=== PATIENT | female | born 1970 | race Hispanic/Latino ===

== ENCOUNTER → 2017-05-02 | Outpatient (CLI) | payer MEDICAID | END | disposition home or self-care (01) | LOC: RAH 15:16 | PROVIDERS: ATTEND Pain Medicine Interventional Pain Medicine | DX: M25.562 Pain in left knee (principal); M25.561 Pain in right knee | CPT/HCPCS: 73562 ==

== ENCOUNTER → 2017-07-15 | Outpatient (CLI) | payer MEDICAID | LOC: RAH 15:46 | PROVIDERS: ATTEND Pain Medicine Interventional Pain Medicine | DX: M47.898 Other spondylosis, sacral and sacrococcygeal region (principal) | CPT/HCPCS: 72220 ==

== ENCOUNTER 2023-02-28 00:16 | Observation (INO) | payer MEDICAID ==
[2023-02-28] VITALS (16 sets, daily range): BP systolic 97–154; BP diastolic 59–88; PULSE 73–82; RESP 14–20; TEMP 98–98.1; O2SAT 98–100
[~2023-02-28] VITALS: Ht 172.7 cm; Wt 78.3 kg
[~2023-02-28 00:16] MED LIST: ACET-2079 PO; ALPR2TAB2 PO; ASPI-1005 PO; CLOT15CR23 TP; DOCU-116 PO; ESCI10TA PO; FERR500P12 MC; GABA-529 PO; INSU100I26 SQ; METF-446 PO; OLAN2.5T3 PO; OMEP20CA12 PO; PIPE3.379 IV; SERT25TA PO; VIT1TABL66 PO
[2023-02-28 00:51] LABS: BASOPHILS # (AUTO) 0.03 K/uL (0.00-0.20); BASOPHILS % (AUTO) 0.5 % (0.0-5.0); EOSINOPHILS # (AUTO) 0.14 K/uL (0.00-0.70); EOSINOPHILS % (AUTO) 2.2 % (0.0-8.0); HEMATOCRIT 30.6 % (36-48); IMMATURE GRANULOCYTE ABSOLUTE 0.01 K/uL (0-1); LYMPHOCYTES # (AUTO) 1.4 K/uL (1.0-4.8); LYMPHOCYTES % (AUTO) 22.1 % (21.0-51.0); MEAN CORPUSCULAR HEMOGLOBIN 29.2 pg (27.0-33.0); MEAN CORPUSCULAR HGB CONC 34.3 g/dL (32.0-36.0); MONOCYTES # (AUTO) 0.7 K/uL (0.1-1.0); MONOCYTES % (AUTO) 10.1 % (3.0-13.0); NEUTROPHILS # (AUTO) 4.2 K/uL (1.8-7.7); NEUTROPHILS % (AUTO) 64.9 % (40.0-77.0); PLATELET COUNT (AUTO) 240 K/uL (130-400); RED CELL DISTRIBUTION WIDTH 13.4 % (11.0-15.5); WHITE BLOOD COUNT (AUTO) 6.4 K/uL (4.8-10.8)
[2023-02-28 01:15] LABS: CREATININE 3.6 mg/dL (0.5-1.5); POTASSIUM 3.8 mmol/L (3.5-5.1)
[2023-02-28] MEDS ORDERED: HYDROXYZINE 25 MG TABLET PO ONE (01:30)
[2023-02-28] MEDS ORDERED: ONDANSETRON 4MG INJ IV PRN (02:30)
[2023-02-28] MEDS ORDERED: ACETAMINOPHEN 325 MG TAB PO PRN ×2 (02:30)
[2023-02-28] MEDS: HEPARIN 5,000 UNIT VIAL SQ SCH ×2 (03:43→14:50)
[2023-02-28] MEDS: HYDROCODONE/ACETAMINOPHEN 5/325 MG TAB PO PRN ×2 (06:43→17:36)
[2023-02-28] MEDS: INSULIN HUMULIN R 100 UNIT/ML 3ML SQ SCH ×4 (06:44→21:00)
[2023-02-28] MEDS: PANTOPRAZOLE 40 MG TAB DR PO SCH (09:01)
[2023-02-28] MEDS ORDERED: LISINOPRIL 20 MG TABLET PO ONE (10:00)
[2023-02-28] MEDS: HYDROMORPHONE 1 MG INJ IV PRN ×2 (10:41→20:20)
[2023-02-28] MEDS ORDERED: HYDRALAZINE 20MG/ML VIAL IV PRN (13:00)
[2023-02-28] MEDS: HYDRALAZINE 25MG TABLET PO SCH ×2 (13:47→20:19)
[2023-02-28] MEDS: GABAPENTIN 100 MG CAPSULE PO SCH ×2 (14:10→20:19)
[2023-02-28] MEDS: DOCUSATE SODIUM 100 MG CAP PO SCH ×2 (14:10→20:19)
[2023-02-28] MEDS ORDERED: HEPARIN 5,000 UNIT VIAL IRRIG PRN (18:30)
[2023-03-01] VITALS (19 sets, daily range): BP systolic 96–132; BP diastolic 56–76; PULSE 71–77; RESP 14–20; TEMP 97.5–98; O2SAT 98–99
[2023-03-01] MEDS: HYDROMORPHONE 1 MG INJ IV PRN ×3 (02:22→18:23)
[2023-03-01] MEDS: HEPARIN 5,000 UNIT VIAL SQ SCH ×2 (03:28→16:45)
[2023-03-01 04:09] LABS: BASOPHILS # (AUTO) 0.02 K/uL (0.00-0.20); BASOPHILS % (AUTO) 0.4 % (0.0-5.0); EOSINOPHILS % (AUTO) 5.3 % (0.0-8.0); HEMATOCRIT 29.4 % (36-48); IMMATURE GRANULOCYTE ABSOLUTE 0.02 K/uL (0-1); LYMPHOCYTES # (AUTO) 1.1 K/uL (1.0-4.8); LYMPHOCYTES % (AUTO) 19.5 % (21.0-51.0); MEAN CORPUSCULAR HEMOGLOBIN 28.9 pg (27.0-33.0); MEAN CORPUSCULAR HGB CONC 33.7 g/dL (32.0-36.0); MONOCYTES # (AUTO) 0.4 K/uL (0.1-1.0); MONOCYTES % (AUTO) 7.7 % (3.0-13.0); NEUTROPHILS # (AUTO) 3.8 K/uL (1.8-7.7); NEUTROPHILS % (AUTO) 66.7 % (40.0-77.0); PLATELET COUNT (AUTO) 214 K/uL (130-400); RED BLOOD CELL COUNT(AUTO) 3.42 MIL/uL (4.00-5.50); RED CELL DISTRIBUTION WIDTH 13.2 % (11.0-15.5); WHITE BLOOD COUNT (AUTO) 5.7 K/uL (4.8-10.8)
[2023-03-01 04:13] LABS: HEMOGLOBIN A1C 6.9 % (4.0-6.0)
[2023-03-01 04:29] LABS: ALBUMIN 1.9 g/dL (3.5-5.0); BILIRUBIN,TOTAL 0.3 mg/dL (0.2-1.0); CREATININE 2.7 mg/dL (0.5-1.5); MAGNESIUM 1.3 mg/dL (1.80-2.40); PHOSPHORUS 4.6 mg/dL (2.5-4.9); POTASSIUM 3.6 mmol/L (3.5-5.1); THYROID STIMULATING HORMONE 4.19 uIU/mL (0.36-3.74); TOTAL PROTEIN, SERUM 6.6 g/dL (6.0-8.3)
[2023-03-01] MEDS ORDERED: KCL 20 MEQ ERTAB PO ONE (05:00)
[2023-03-01] MEDS ORDERED: MAGNESIUM 2GM PREMIX 50ML 50 ML IV SCH ×2 (05:00→13:00)
[2023-03-01] MEDS: INSULIN HUMULIN R 100 UNIT/ML 3ML SQ SCH ×4 (06:46→20:27)
[2023-03-01] MEDS: HYDROCODONE/ACETAMINOPHEN 5/325 MG TAB PO PRN ×2 (07:02→11:19)
[2023-03-01] MEDS: (Escitalopram Oxalate (Lexapro) 10 MG) PO SCH (09:00)
[2023-03-01] MEDS: HYDRALAZINE 25MG TABLET PO SCH ×3 (09:00→20:14)
[2023-03-01] MEDS: FERROUS SULFATE DRIED PO SCH (09:00)
[2023-03-01] MEDS: LISINOPRIL 20 MG TABLET PO SCH (09:00)
[2023-03-01] MEDS ORDERED: HEPARIN 5,000 UNIT VIAL IJ PRN (09:30)
[2023-03-01] MEDS: ASPIRIN 81MG CHEW TAB PO SCH (09:55)
[2023-03-01] MEDS: DOCUSATE SODIUM 100 MG CAP PO SCH ×3 (09:55→20:14)
[2023-03-01] MEDS: PANTOPRAZOLE 40 MG TAB DR PO SCH (09:55)
[2023-03-01] MEDS: GABAPENTIN 100 MG CAPSULE PO SCH ×3 (09:55→20:14)
[2023-03-02] VITALS: BP 159/79; PULSE 71; RESP 18
[2023-03-02] MEDS: HYDROMORPHONE 1 MG INJ IV PRN ×3 (00:49→11:24)
[2023-03-02] MEDS: HEPARIN 5,000 UNIT VIAL SQ SCH ×2 (00:49→14:44)
[2023-03-02 04:00] VITALS: BP 153/87; PULSE 74; RESP 16
[2023-03-02] MEDS: INSULIN HUMULIN R 100 UNIT/ML 3ML SQ SCH ×2 (05:45→11:30)
[2023-03-02 06:51] LABS: HEMATOCRIT 29.4 % (36-48); MEAN CORPUSCULAR HEMOGLOBIN 28.9 pg (27.0-33.0); MEAN CORPUSCULAR HGB CONC 33.3 g/dL (32.0-36.0); MEAN CORPUSCULAR VOLUME 86.7 fL (79-99); RED BLOOD CELL COUNT(AUTO) 3.39 MIL/uL (4.00-5.50); RED CELL DISTRIBUTION WIDTH 13.3 % (11.0-15.5); WHITE BLOOD COUNT (AUTO) 7.2 K/uL (4.8-10.8)
[2023-03-02 07:22] LABS: HEPATITIS Bs ANTIGEN SCREEN P Negative (Negative)
[2023-03-02 07:30] VITALS: O2SAT 99
[2023-03-02 08:00] VITALS: BP 120/76; PULSE 70; RESP 20
[2023-03-02] MEDS ORDERED: HYDR25 PO (08:14)
[2023-03-02] MEDS ORDERED: LISI20TA24 PO (08:14)
[2023-03-02] MEDS: PANTOPRAZOLE 40 MG TAB DR PO SCH (08:40)
[2023-03-02] MEDS: DOCUSATE SODIUM 100 MG CAP PO SCH ×2 (08:40→14:45)
[2023-03-02] MEDS: HYDRALAZINE 25MG TABLET PO SCH ×2 (08:40→14:45)
[2023-03-02] MEDS: ASPIRIN 81MG CHEW TAB PO SCH (08:40)
[2023-03-02] MEDS: (Escitalopram Oxalate (Lexapro) 10 MG) PO SCH (08:41)
[2023-03-02] MEDS: FERROUS SULFATE DRIED PO SCH (08:41)
[2023-03-02] MEDS: GABAPENTIN 100 MG CAPSULE PO SCH ×2 (08:41→14:45)
[2023-03-02] MEDS: LISINOPRIL 20 MG TABLET PO SCH (08:41)
[2023-03-02 09:14] LABS: BILIRUBIN,TOTAL 0.2 mg/dL (0.2-1.0); MAGNESIUM 1.6 mg/dL (1.80-2.40); TOTAL PROTEIN, SERUM 6.8 g/dL (6.0-8.3)
[2023-03-02] MEDS ORDERED: EPOETIN ALFA-EPBX (NON-ESRD) 10,000 UNIT/ML VIAL SQ SCH (09:30)
[2023-03-02] MEDS ORDERED: MAGNESIUM 2GM PREMIX 50ML 50 ML IV SCH (10:30)
[2023-03-02 12:00] VITALS: BP 150/82; PULSE 69; RESP 18
== END 2023-03-02 15:15 | disposition home or self-care (01) ==
LOC: EDH 00:16 → INTOOBSV 00:17 → EDHIP 00:17 → UNDOADMIN 02:27 → EDHIP 02:27 → 2AH 13:53 → 3BH 03-02 00:20
PROVIDERS: ADMIT Internal Medicine; ATTEND Internal Medicine
DX: E87.70 Fluid overload, unspecified (principal); I12.0 Hypertensive chronic kidney disease with stage 5 chronic kidney disease or end stage renal disease; E11.22 Type 2 diabetes mellitus with diabetic chronic kidney disease; N18.6 End stage renal disease; F41.9 Anxiety disorder, unspecified; D64.9 Anemia, unspecified; F32.A Depression, unspecified; E03.9 Hypothyroidism, unspecified; Z91.158 Patient's noncompliance with renal dialysis for other reason; Z90.89 Acquired absence of other organs; Z79.4 Long term (current) use of insulin; Z99.2 Dependence on renal dialysis; Z79.84 Long term (current) use of oral hypoglycemic drugs; Z79.82 Long term (current) use of aspirin
CPT/HCPCS: 96376 ×3; 96372 ×3; 96375; 99285; 82550; 84484; 80048; 85025 ×2; 82948 ×9; 86706; 87340; 86704; 36415 ×3; 71045; 93005; 90935 ×2; 96365; 96366 ×2; 83036; 84443; 83735 ×2; 84100; 80053 ×2; 72100; 72070; 85027; J1170 ×7; J1644 ×9; J1815 ×3; J3475 ×2; G0378 ×6; Q5106; G0257

== ENCOUNTER 2023-03-22 00:37 | Emergency (ER) | payer MEDICAID ==
[~2023-03-22] VITALS: Ht 172.7 cm; Wt 84.8 kg
[~2023-03-22 00:37] MED LIST changes: -CLOT15CR23 TP; +HYDR25 PO; +LISI20TA24 PO; -METF-446 PO; -PIPE3.379 IV; -SERT25TA PO
[2023-03-22] MEDS ORDERED: IBUP-1493 PO (01:59)
[2023-03-22] MEDS ORDERED: LIDOP TD (01:59)
[2023-03-22] MEDS ORDERED: MORPHINE 2 MG SYG IM ONE (02:00)
[2023-03-22 03:12] VITALS: BP 132/78; PULSE 84; RESP 18; O2SAT 99
[2023-03-23] MEDS ORDERED: CIPR-279 PO (12:38)
[2023-03-23] MEDS ORDERED: HYOS0.124 SL (12:38)
[2023-03-23] MEDS ORDERED: ONDA4TAB10 PO (12:38)
[2023-03-23] MEDS ORDERED: METR375C2 PO (12:38)
== END 2023-03-22 03:13 | disposition home or self-care (01) ==
LOC: EDH 00:37
DX: M48.56XA Collapsed vertebra, not elsewhere classified, lumbar region, initial encounter for fracture (principal); M54.50 Low back pain, unspecified; E11.9 Type 2 diabetes mellitus without complications; E78.00 Pure hypercholesterolemia, unspecified; I10 Essential (primary) hypertension; Z79.4 Long term (current) use of insulin; Z79.82 Long term (current) use of aspirin; Z79.899 Other long term (current) drug therapy; Z90.49 Acquired absence of other specified parts of digestive tract; Z99.2 Dependence on renal dialysis
CPT/HCPCS: 99283; 96372; J2270

== ENCOUNTER 2023-03-23 08:21 | Emergency (ER) | payer MEDICAID ==
[~2023-03-23] VITALS: Ht 172.7 cm; Wt 85.7 kg
[~2023-03-23 08:21] MED LIST changes: +IBUP-1493 PO; +LIDOP TD
[2023-03-23] MEDS ORDERED: 0.9% NACL 250ML 250 ML IV ONE (08:30)
[2023-03-23 08:53] LABS: HEMATOCRIT 35.4 % (36-48); MEAN CORPUSCULAR HEMOGLOBIN 28.8 pg (27.0-33.0); MEAN CORPUSCULAR HGB CONC 32.5 g/dL (32.0-36.0); MEAN CORPUSCULAR VOLUME 88.7 fL (79-99); RED BLOOD CELL COUNT(AUTO) 3.99 MIL/uL (4.00-5.50); RED CELL DISTRIBUTION WIDTH 14.7 % (11.0-15.5); WHITE BLOOD COUNT (AUTO) 4.9 K/uL (4.8-10.8)
[2023-03-23] MEDS ORDERED: HYDROMORPHONE 0.5 MG SYG (0.5MG/0.5ML) IVP ONE ×2 (09:00→12:30)
[2023-03-23] MEDS ORDERED: ONDANSETRON 4MG INJ IVP ONE (09:00)
[2023-03-23 09:07] LABS: CREATININE 2.3 mg/dL (0.5-1.5); POTASSIUM 3.8 mmol/L (3.5-5.1)
[2023-03-23] MEDS ORDERED: METRONIDAZOLE 250MG/50ML 50 ML IV ONE (10:00)
[2023-03-23] MEDS ORDERED: METRONIDAZOLE 250 MG TABLET PO ONE (10:00)
[2023-03-23 10:02] LABS: INFLUENZA TYPE A Negative For Type A (NEGATIVE); INFLUENZA TYPE B Negative For Type B (NEGATIVE)
[2023-03-23] MEDS ORDERED: CLONIDINE HCL 0.1 MG TABLET ONE (11:58)
[2023-03-23] MEDS ORDERED: CLONIDINE HCL 0.1 MG TABLET PO ONE (12:00)
[2023-03-23] MEDS ORDERED: METR375C2 PO (12:38)
[2023-03-23] MEDS ORDERED: HYOS0.124 SL (12:38)
[2023-03-23] MEDS ORDERED: ONDA4TAB10 PO (12:38)
[2023-03-23] MEDS ORDERED: CIPR-279 PO (12:38)
[2023-03-23 13:06] VITALS: BP 168/87; PULSE 79; RESP 16; O2SAT 97
== END 2023-03-23 13:48 | disposition home or self-care (01) ==
LOC: EDH 08:21
DX: A04.9 Bacterial intestinal infection, unspecified (principal); E78.00 Pure hypercholesterolemia, unspecified; I12.0 Hypertensive chronic kidney disease with stage 5 chronic kidney disease or end stage renal disease; E11.22 Type 2 diabetes mellitus with diabetic chronic kidney disease; N18.6 End stage renal disease; Z79.1 Long term (current) use of non-steroidal anti-inflammatories (NSAID); Z79.4 Long term (current) use of insulin; Z79.82 Long term (current) use of aspirin; Z79.899 Other long term (current) drug therapy; Z90.49 Acquired absence of other specified parts of digestive tract; Z20.822 Contact with and (suspected) exposure to COVID-19
CPT/HCPCS: 99285; 74176; 96374; 96375; 84484; 80048; 83690; 85027; 87804 ×2; 36415; 93005; J2405; J1170 ×2; J3490

== ENCOUNTER 2023-04-19 13:03 | Emergency (ER) | payer MEDICAID ==
[~2023-04-19] VITALS: Ht 175.3 cm; Wt 84.4 kg
[~2023-04-19 13:03] MED LIST changes: +CIPR-279 PO; +HYOS0.124 SL; +METR375C2 PO; +ONDA4TAB10 PO
[2023-04-19 14:00] VITALS: BP 162/77; PULSE 68; RESP 16
[2023-04-19] MEDS: DEXAMETHASONE SOD PHOSPHATE 4 MG/ML 1ML VIAL IM ONE (17:42)
[2023-04-19] MEDS: KETOROLAC 60 MG VIAL (30MG/ML) IM ONE (17:42)
[2023-04-19 17:45] LABS: BASOPHILS # (AUTO) 0.02 K/uL (0.00-0.20); BASOPHILS % (AUTO) 0.3 % (0.0-5.0); EOSINOPHILS # (AUTO) 0.13 K/uL (0.00-0.70); EOSINOPHILS % (AUTO) 1.8 % (0.0-8.0); HEMATOCRIT 36.5 % (36-48); IMMATURE GRANULOCYTE ABSOLUTE 0.02 K/uL (0-1); LYMPHOCYTES # (AUTO) 1.3 K/uL (1.0-4.8); LYMPHOCYTES % (AUTO) 17.2 % (21.0-51.0); MEAN CORPUSCULAR HEMOGLOBIN 29.4 pg (27.0-33.0); MEAN CORPUSCULAR HGB CONC 33.2 g/dL (32.0-36.0); MEAN CORPUSCULAR VOLUME 88.8 fL (79-99); MONOCYTES # (AUTO) 0.5 K/uL (0.1-1.0); MONOCYTES % (AUTO) 6.9 % (3.0-13.0); NEUTROPHILS # (AUTO) 5.4 K/uL (1.8-7.7); NEUTROPHILS % (AUTO) 73.5 % (40.0-77.0); PLATELET COUNT (AUTO) 191 K/uL (130-400); RED BLOOD CELL COUNT(AUTO) 4.11 MIL/uL (4.00-5.50); RED CELL DISTRIBUTION WIDTH 13.9 % (11.0-15.5); WHITE BLOOD COUNT (AUTO) 7.3 K/uL (4.8-10.8)
[2023-04-19 18:00] LABS: CREATININE 3.1 mg/dL (0.5-1.5); POTASSIUM 5.7 mmol/L (3.5-5.1)
[2023-04-19] MEDS ORDERED: IBUP-2070 PO (18:34)
[2023-04-19] MEDS ORDERED: PRED20TA3 PO (18:34)
[2023-04-19] MEDS: SODIUM ZIRCONIUM CYCLOSILICATE 5 GM POWD.PACK PO SCH (18:49)
== END 2023-04-19 19:04 | disposition home or self-care (01) ==
LOC: EDH 13:03
DX: G89.29 Other chronic pain (principal); M54.9 Dorsalgia, unspecified; I12.0 Hypertensive chronic kidney disease with stage 5 chronic kidney disease or end stage renal disease; E11.22 Type 2 diabetes mellitus with diabetic chronic kidney disease; N18.6 End stage renal disease; Z99.2 Dependence on renal dialysis; K59.03 Drug induced constipation; E78.00 Pure hypercholesterolemia, unspecified; Z79.82 Long term (current) use of aspirin; Z79.899 Other long term (current) drug therapy; Z98.890 Other specified postprocedural states; Z90.49 Acquired absence of other specified parts of digestive tract
CPT/HCPCS: 99284; 80048; 85025; 36415; 96372 ×2; J1100; J1885

== ENCOUNTER 2023-09-27 17:09 | Emergency (ER) | payer MEDICAID ==
[~2023-09-27] VITALS: Ht 154.9 cm; Wt 127.0 kg
[~2023-09-27 17:09] MED LIST changes: +IBUP-2070 PO; +ONDA-243 PO; -ONDA4TAB10 PO; +PRED20TA3 PO
[2023-09-27 21:12] VITALS: BP 146/85; PULSE 82; RESP 18; O2SAT 99
== END 2023-09-27 21:48 | disposition home or self-care (01) ==
LOC: EDH 17:09
DX: S32.028A Other fracture of second lumbar vertebra, initial encounter for closed fracture (principal); S00.83XA Contusion of other part of head, initial encounter; S30.0XXA Contusion of lower back and pelvis, initial encounter; I12.0 Hypertensive chronic kidney disease with stage 5 chronic kidney disease or end stage renal disease; E11.22 Type 2 diabetes mellitus with diabetic chronic kidney disease; N18.6 End stage renal disease; E78.00 Pure hypercholesterolemia, unspecified; Z79.82 Long term (current) use of aspirin; Z79.899 Other long term (current) drug therapy; Z90.49 Acquired absence of other specified parts of digestive tract; Z98.890 Other specified postprocedural states; Z99.2 Dependence on renal dialysis; W18.39XA Other fall on same level, initial encounter; Y93.89 Activity, other specified; Y92.89 Other specified places as the place of occurrence of the external cause; Y99.8 Other external cause status
CPT/HCPCS: 70450; 71250; 72125; 74176; 93005

== ENCOUNTER 2023-12-25 18:33 | Emergency (ER) | payer MEDICAID ==
[~2023-12-25] VITALS: Ht 172.7 cm; Wt 103.4 kg
[2023-12-25 18:36] VITALS: TEMP 98.8
[2023-12-25 19:51] LABS: HEMATOCRIT 36.9 % (36-48); LYMPHOCYTES % (AUTO) 15.6 % (21.0-51.0); MEAN CORPUSCULAR HEMOGLOBIN 29.3 pg (27.0-33.0); MEAN CORPUSCULAR HGB CONC 31.7 g/dL (32.0-36.0); MEAN CORPUSCULAR VOLUME 92.5 fL (79-99); NEUTROPHILS % (AUTO) 70.9 % (40.0-77.0); PLATELET COUNT (AUTO) 214 K/uL (130-400); RED BLOOD CELL COUNT(AUTO) 3.99 MIL/uL (4.00-5.50); RED CELL DISTRIBUTION WIDTH 15.7 % (11.0-15.5); WHITE BLOOD COUNT (AUTO) 6.4 K/uL (4.8-10.8)
[2023-12-25 19:52] LABS: BASOPHILS # (AUTO) 0.02 K/uL (0.00-0.20); BASOPHILS % (AUTO) 0.3 % (0.0-5.0); EOSINOPHILS # (AUTO) 0.24 K/uL (0.00-0.70); EOSINOPHILS % (AUTO) 3.7 % (0.0-8.0); IMMATURE GRANULOCYTE ABSOLUTE 0.03 K/uL (0-1); MONOCYTES # (AUTO) 0.6 K/uL (0.1-1.0); NEUTROPHILS # (AUTO) 4.6 K/uL (1.8-7.7)
[2023-12-25 20:07] LABS: CREATININE 5.5 mg/dL (0.5-1.0); POTASSIUM 4.5 mmol/L (3.5-5.1)
[2023-12-25 20:09] LABS: INR 0.99 (0.85-1.15); PROTHROMBIN TIME 10.7 SEC (9.6-11.6)
[2023-12-25 20:10] LABS: PARTIAL THROMBOPLASTIN TIME 25.9 SEC (26.3-35.5)
[2023-12-25] MEDS: acetaMINOPHEN 325 MG TAB PO ONE (21:57)
[2023-12-25 22:03] VITALS: BP 170/85; PULSE 71; RESP 18; O2SAT 99
[2023-12-25] MEDS ORDERED: ACET-66 PO (22:38)
== END 2023-12-25 22:53 | disposition home or self-care (01) ==
LOC: EDH 18:33
DX: R07.89 Other chest pain (principal); M25.512 Pain in left shoulder; I12.0 Hypertensive chronic kidney disease with stage 5 chronic kidney disease or end stage renal disease; E11.22 Type 2 diabetes mellitus with diabetic chronic kidney disease; N18.6 End stage renal disease; E03.9 Hypothyroidism, unspecified; E78.00 Pure hypercholesterolemia, unspecified; F41.9 Anxiety disorder, unspecified; Z79.1 Long term (current) use of non-steroidal anti-inflammatories (NSAID); Z79.4 Long term (current) use of insulin; Z79.52 Long term (current) use of systemic steroids; Z79.82 Long term (current) use of aspirin; Z79.899 Other long term (current) drug therapy; Z90.49 Acquired absence of other specified parts of digestive tract; Z98.890 Other specified postprocedural states; Z99.2 Dependence on renal dialysis; W18.39XA Other fall on same level, initial encounter; Y93.89 Activity, other specified; Y92.89 Other specified places as the place of occurrence of the external cause; Y99.8 Other external cause status
CPT/HCPCS: 36415; 71045; 71046; 71101; 73030; 80048; 84484; 85025; 85610; 85730; 93005

== ENCOUNTER → 2024-08-23 | Emergency (ER) | payer OTHER, MEDICARE ==
[~2024-08-23] VITALS: Ht 172.7 cm; Wt 107.0 kg
[~2024-08-23] MED LIST changes: -ACET-2079 PO; +ALPR-412 PO; -ALPR2TAB2 PO; -ASPI-1005 PO; -CIPR-279 PO; -DOCU-116 PO; -ESCI10TA PO; -FERR500P12 MC; -GABA-529 PO; -HYDR25 PO; -HYOS0.124 SL; -IBUP-1493 PO; -IBUP-2070 PO; -INSU100I26 SQ; -LIDOP TD; -LISI20TA24 PO; -METR375C2 PO; -OLAN2.5T3 PO; -OMEP20CA12 PO; -ONDA-243 PO; +PREG50 PO; -VIT1TABL66 PO; +ketOROlac 30MG VIAL (30MG/ML) IVP ONE
--- NOTE | 2024-08-23 11:45 | NUR ---
UA ORDER: RENAL FAILURE STATES IS OLIGURIC
[2024-08-23 12:09] LABS: BASOPHILS # (AUTO) 0.02 K/uL (0.00-0.20); BASOPHILS % (AUTO) 0.3 % (0.0-5.0); EOSINOPHILS # (AUTO) 0.16 K/uL (0.00-0.70); EOSINOPHILS % (AUTO) 2.8 % (0.0-8.0); HEMATOCRIT 34.8 % (36-48); IMMATURE GRANULOCYTE ABSOLUTE 0.01 K/uL (0-1); LYMPHOCYTES # (AUTO) 0.6 K/uL (1.0-4.8); LYMPHOCYTES % (AUTO) 10.1 % (21.0-51.0); MEAN CORPUSCULAR HEMOGLOBIN 29.8 pg (27.0-33.0); MEAN CORPUSCULAR HGB CONC 32.5 g/dL (32.0-36.0); MEAN CORPUSCULAR VOLUME 91.8 fL (79-99); MONOCYTES # (AUTO) 0.5 K/uL (0.1-1.0); MONOCYTES % (AUTO) 9.4 % (3.0-13.0); NEUTROPHILS # (AUTO) 4.4 K/uL (1.8-7.7); NEUTROPHILS % (AUTO) 77.2 % (40.0-77.0); PLATELET COUNT (AUTO) 173 K/uL (130-400); RED BLOOD CELL COUNT(AUTO) 3.79 MIL/uL (4.00-5.50); RED CELL DISTRIBUTION WIDTH 17.7 % (11.0-15.5); WHITE BLOOD COUNT (AUTO) 5.7 K/uL (4.8-10.8)
[2024-08-23 12:16] LABS: CREATININE 3.8 mg/dL (0.5-1.0); POTASSIUM 3.5 mmol/L (3.5-5.1)
--- NOTE | 2024-08-23 12:41 | ERN ---
General Chief Complaint: Headache Stated Complaint: MIGRANES Time Seen by MD: 11:44 History of Present Illness Initial Comments Patient is a 53-year-old female with end-stage renal disease on dialysis. She has just completed her dialysis for today and comes to the emergency room with a severe headache. She has had these before after dialysis but never this bad. No nausea no vomiting no diarrhea. Timing/Duration: 1 hour Allergies: Coded Allergies: No Known Drug Allergies (Unverified Allergy, Unknown, 10/17/22) Home Meds Active Scripts Prednisone (Prednisone) 20 Mg Tablet, 1 TAB PO BID for 5 Days, #10 TAB 0 Refills Prov:BETINA MISHRA DO 08/23/24 Reported Medications Pregabalin (Lyrica) 50 Mg Cap, 50 MG PO BID 08/16/24 Alprazolam (Alprazolam) 2 Mg Tab.rapdis, 1 TAB PO TID for anxiety for 30 Days, #90 TAB 0 Refills 08/15/24 Past Medical History Past Medical History: Anxiety, Depression, Diabetes-Type II, High Cholesterol, Hypertension, Renal Failure, Other Medical History Other: ESRD, BLIND IN L EYE Past Surgical History: Cholecystectomy, , RAVA Family History Family History: CAD, DM, HTN, Negative Social History Social History: Negative, Lives in [facility] Female( History) History: Not Applicable Constitutional: (-) chills, (-) diaphoresis, (-) fever, (-) malaise, (-) weakness, (-) other documentation EENTM: (-) eye pain, (-) blurred vision, (-) tearing, (-) double vision, (-) ear pain, (-) ear discharge, (-) nose pain, (-) nose congestion, (-) throat pain, (-) Throat swelling, (-) mouth pain, (-) tooth pain, (-) mouth swelling, (-) other documentation Respiratory: (-) cough, (-) orthopnea, (-) short of breath, (-) stridor, (-) wheezing, (-) other documentation Cardiovascular: (-) chest pain, (-) edema, (-) palpitations, (-) syncope, (-) dyspnea on exertion, (-) other documentation Gastrointestinal/Abdominal: (-) nausea, (-) vomiting, (-) diarrhea, (-) abdominal pain, (-) abdominal distention, (-) constipation, (-) rectal bleeding, (-) dark stool/melena, (-) other documentation Musculoskeletal: (-) Neck pain, (-) back pain, (-) Flank Pain, (-) joint pain, (-) joint swelling, (-) muscle pain, (-) muscle stiffness, (-) gout, (-) other documentation Neuro: (+) headache Physical Exam General Appearance: (+) no apparent distress Orientation: (+) oriented x 3 Head/Face Trauma: No Eye: bilateral eye normal inspection, bilateral eye PERRL, bilateral eye EOMI Ear, Nose, Throat: (+) hearing grossly normal, (+) normal ENT inspection Neck: (+) normal inspection, (+) supple, (+) full range of motion Respiratory: (+) chest non-tender, (+) lungs clear, (+) well ventilated Heart: (+) regular, (+) no gallop Vascular: (+) no edema, (+) normal peripheral pulse Gastrointestinal: (+) soft, (+) non-tender, (+) bowel sound present Results Laboratory and Microbiology Lab and Micro Result Laboratory Tests Test 08/23/24 12:05 White Blood Count 5.7 K/uL (4.8-10.8) Red Blood Count 3.79 MIL/uL (4.00-5.50) L Hemoglobin 11.3 g/dL (12.0-16.0) L Hematocrit 34.8 % (36-48) L Mean Corpuscular Volume 91.8 fL (79-99) Mean Corpuscular Hemoglobin 29.8 pg (27.0-33.0) Mean Corpuscular Hemoglobin Concent 32.5 g/dL (32.0-36.0) Red Cell Distribution Width 17.7 % (11.0-15.5) H Platelet Count 173 K/uL (130-400) Mean Platelet Volume 11.7 fL (7.5-10.5) H Immature Granulocyte % (Auto) 0.2 % (0-1) Neutrophils (%) (Auto) 77.2 % (40.0-77.0) H Lymphocytes (%) (Auto) 10.1 % (21.0-51.0) L Monocytes (%) (Auto) 9.4 % (3.0-13.0) Eosinophils (%) (Auto) 2.8 % (0.0-8.0) Basophils (%) (Auto) 0.3 % (0.0-5.0) Neutrophils # (Auto) 4.4 K/uL (1.8-7.7) Lymphocytes # (Auto) 0.6 K/uL (1.0-4.8) L Monocytes # (Auto) 0.5 K/uL (0.1-1.0) Eosinophils # (Auto) 0.16 K/uL (0.00-0.70) Basophils # (Auto) 0.02 K/uL (0.00-0.20) Absolute Immature Granulocyte (auto 0.01 K/uL (0-1) Nucleated Red Blood Cells 0.0 % (0.0-0.19) Sodium Level 137 mmol/L (136-145) Potassium Level 3.5 mmol/L (3.5-5.1) Chloride Level 96 mmol/L (101-111) L Carbon Dioxide Level 37 mmol/L (21-32) H Blood Urea Nitrogen 18 mg/dL (7-18) Creatinine 3.8 mg/dL (0.5-1.0) H Glomerular Filtration Rate Calc 13 mL/min (>90) Random Glucose 114 mg/dL (70-105) H Total Calcium 8.1 mg/dL (8.5-10.1) L Lipase 57 U/L (16-77) MDM Patient has a headache after dialysis. I will start by just giving her back about 500 cc of fluid. I will also give her some Toradol. I will also get a series of post dialysis labs. Of note the patient's systolic blood pressure is 177/78. She is not tachycardic. I will see if relieving her headache decreases her blood pressure before starting any antihypertensive medications. With the normalizing of her blood pressure and the extra bit of fluid patient's headache is now gone. Unfortunately she now says that she has lost a hearing in her left ear. It is not clear to me when she lost her hearing it is not clear to her either as she said she just noticed it when she was using her phone. I ordered a head CT scan. ED Course Orders Procedure Category Date Status Time Vital Signs Per CPOE 08/23/24 Transmitted Routine 12:00 Saline Lock Iv CPOE 08/23/24 Transmitted 12:00 Cbc With Differential LAB 08/23/24 Complete 12:00 Lipase LAB 08/23/24 Complete 12:00 12 Lead Ekg Tracing- EKG 08/23/24 Complete Technical 12:00 Basic Metabolic Panel LAB 08/23/24 Complete 12:00 Lactated Ringers PHA 08/23/24 Complete 1000ml (Lactated 12:43 Ketorolac PHA 08/23/24 Complete Tromethamine 30mg/Ml 13:00 Ketorolac PHA 08/23/24 Complete Tromethamine 30mg/Ml 13:30 Ketorolac PHA 08/23/24 Complete Tromethamine 30mg/Ml 13:30 Clonidine Hcl 0.2 Mg PHA 08/23/24 Complete Tablet (Catapres 0. 16:00 Hydralazine 20mg Inj PHA 08/23/24 Complete (Apresoline 20mg In 17:00 Ct Head/Brain W/O CT 08/23/24 Resulted Contrast 18:09 Current Medications Medications (Trade) Dose Ordered Sig/Andres Route PRN Reason Start Time Stop Time Status Last Admin Dose Admin Clonidine HCl (CATApres 0.2 MG TAB) 0.2 mg ONCE ONCE PO 08/23/24 16:00 08/23/24 16:01 DC 08/23/24 15:41 Hydralazine HCl (APRESOLine 20MG INJ) 20 mg ONCE ONCE IV 08/23/24 17:00 08/23/24 17:01 DC 08/23/24 16:45 Ketorolac Tromethamine (toRADol) 30 mg ONCE ONCE IVP 08/23/24 13:00 08/23/24 12:50 DC Ketorolac Tromethamine (toRADol) 30 mg ONCE ONCE IVP 08/23/24 13:30 08/23/24 13:17 DC Ketorolac Tromethamine (toRADol) 30 mg ONCE ONCE IVP 08/23/24 13:30 08/23/24 13:31 DC 08/23/24 13:21 Lactated Ringer's (Lactated Ringers 1000ml) 500 ml BOLUS STAT IV 08/23/24 12:43 08/23/24 12:46 DC 08/23/24 13:21 Vital Signs Date Time Temp Pulse Resp B/P (MAP) Pulse Ox O2 Delivery O2 Flow Rate FiO2 08/23/24 19:21 98.1 65 16 156/65 97 Room Air* 0 08/23/24 19:00 66 16 108/57 95 Room Air* 0 08/23/24 17:59 97.9 68 14 133/60 96 Room Air* 0 08/23/24 17:17 97.9 73 14 166/75 97 Room Air* 0 08/23/24 17:04 179/88 Room Air* 0 08/23/24 16:29 97.9 73 16 182/89 96 Room Air* 0 08/23/24 15:41 73 176/79 08/23/24 13:22 75 16 175/76 95 Room Air* 0 08/23/24 11:45 74 13 177/78 97 Room Air* 0 08/23/24 11:31 97.9 72 18 181/77 96 Room Air 0 DX & DISP Disposition: Discharge Departure Impression: Primary Impression: Status post dialysis Additional Impressions: Headache, Subjective hearing change Condition: Stable Scripts Prednisone (Prednisone) 20 Mg Tablet 1 TAB PO BID for 5 Days, #10 TAB 0 Refills Prov: BETINA MISHRA DO 08/23/24 Additional Instructions: Your symptoms are consistent with a post dialysis headache. Your vital signs have improved in the ER. Your lab work and a CT scan of your head is unremarkable. Regarding your hearing changes, I have prescribed prednisone. Take as prescribed. I recommend that you follow up with an ENT. Please make an appointment. Referrals: GLO MAYEN MD (PCP) RAOUL GARCIA MD August 23, 2024 12:41 BETINA MISHRA DO August 23, 2024 19:51
[2024-08-23] MEDS: LACTATED RINGERS 1000ML IV STA (13:21)
[2024-08-23] MEDS: ketOROlac 30MG VIAL (30MG/ML) IVP ONE (13:21)
--- NOTE | 2024-08-23 13:42 | EKG ---
[facility] Test Date: 2024-08-23 Test Time: 11:35:21 Pat Name: KAYCEE CHILDRESS Department: [facility] Room: Gender: F Molder Shoulder Pad: [id number] : 1970 Requested By: RAOUL GARCIA Order Number: [id number] Reading MD: Matthew Hinds Measurements Intervals [place] Rate: 72 P: 49 MD: 168 QRS: 6 QRSD: 93 T: 86 QT: 422 QTc: 464 Interpretive Statements Sinus rhythm Probable left atrial enlargement Nonspecific T abnormalities, lateral leads Compared to ECG 07/13/2024 14:22:28 T-wave abnormality now present Electronically Signed On 08-27-2024 22:10:44 CDT by Matthew Hinds Please click the below link to view image of tracing.
[2024-08-23] MEDS: cloNIDine HCL 0.2 MG TABLET PO ONE (15:41)
[2024-08-23] MEDS: hydrALAZine 20MG/ML VIAL IV ONE (16:45)
--- NOTE | 2024-08-23 18:10 | NUR ---
PT ORDER FOR DISCHARGE AND DEPARTED FROM [facility]. PER DR GARCIA TO REPLACE PT BACK ON [facility] FOR ORDER CT HEAD.
--- NOTE | 2024-08-23 19:07 | HMCIMG ---
CT HEAD/BRAIN W/O CONTRAST HISTORY: Headaches COMPARISON: None TECHNIQUE: Multiple sequential axial images of the head were obtained from the base of the skull through vertex. Patient was not given contrast through intravenous route. FINDINGS: The ventricles and extraventricular CSF spaces are dilated consistent with cerebral atrophy. Nonspecific white matter changes seen. There is no midline shift, mass effect or herniation. No acute intracranial bleed is seen. Visualized portion of the paranasal sinuses are grossly within normal limits. IMPRESSION: 1. No acute intracranial bleed is seen. 2. Atrophy with white matter changes. CT was performed with one or more following dose reduction techniques: automated exposure control, adjustment of the mA and kv according to patient's size, or use of a iterative reconstruction technique.
[2024-08-23 19:21] VITALS: BP 156/65; PULSE 65; RESP 16; TEMP 98; O2SAT 97
== END ==
LOC: EDH 11:18
DX: I12.0 Hypertensive chronic kidney disease with stage 5 chronic kidney disease or end stage renal disease (principal); E11.22 Type 2 diabetes mellitus with diabetic chronic kidney disease; N18.6 End stage renal disease; R51.9 Headache, unspecified; E78.00 Pure hypercholesterolemia, unspecified; F32.A Depression, unspecified; F41.9 Anxiety disorder, unspecified; Z99.2 Dependence on renal dialysis; Z79.52 Long term (current) use of systemic steroids; Z79.899 Other long term (current) drug therapy; Z90.49 Acquired absence of other specified parts of digestive tract
CPT/HCPCS: 99285; 96374; 70450; 96361; 96375; 80048; 83690; 85025; 36415; 93005; J1885; J7120; J0360

== ENCOUNTER 2025-03-18 12:50 | Emergency (ER) | payer OTHER, MEDICAID ==
[~2025-03-18] VITALS: Ht 175.3 cm; Wt 117.9 kg
[~2025-03-18 12:50] MED LIST changes: -ALPR-412 PO; +ALPR2TAB7 PO; +CLON0.1T PO; +DIPH50CA38 PO; +DOXY100C5 PO; -PRED20TA3 PO; -PREG50 PO; +PREG50CA64 PO; +SEVE0.8P PO; -ketOROlac 30MG VIAL (30MG/ML) IVP ONE
[2025-03-18 13:09] LABS: IMMATURE GRANULOCYTE ABSOLUTE 0.02 K/uL (0-1); NUCLEATED RED BLOOD CELLS 0.0 % (0.0-0.19); PLATELET COUNT (AUTO) 162 K/uL (130-400); RED BLOOD CELL COUNT(AUTO) 3.90 MIL/uL (4.00-5.50); RED CELL DISTRIBUTION WIDTH 16.6 % (11.0-15.5); WHITE BLOOD COUNT (AUTO) 5.4 K/uL (4.8-10.8)
[2025-03-18 13:19] LABS: INR 1.14 (0.85-1.15)
[2025-03-18 14:00] LABS: CREATININE 5.4 mg/dL (0.5-1.0); GLOMERULAR FILTR. RATE CALC 9.0 mL/min (>90); GLUCOSE,RANDOM 92.0 mg/dL (70-105); SODIUM SERUM 134.0 mmol/L (136-145); UREA NITROGEN, BLOOD 34.0 mg/dL (7-18)
--- NOTE | 2025-03-18 14:07 | ERN ---
General Chief Complaint: Abdominal Pain Stated Complaint: ABDOMINAL PAIN X3 WEEKS. REQUESTING PARACENTESIS Time Seen by MD: 12:55 History of Present Illness Initial Comments 54-year-old female ESRD dialysis dependent, liver disease, who presents for abdominal discomfort. Patient reports she feels distended in your abdomen. She had a paracentesis three weeks ago due with a similar presentation. She denies fevers, vomiting, diarrhea, melena or any other symptoms. She has a chronic wound on her right foot that she reports pain to. It is well healing in nature. No fevers. No erythema. Allergies: Coded Allergies: No Known Drug Allergies (Unverified Allergy, Unknown, 10/17/22) Home Meds Reported Medications Diphenhydramine HCl (Benadryl) 50 Mg Cap, 1 CAP PO DAILY PRN for ITCHING for 30 Days, #30 CAP 0 Refills 11/14/24 Alprazolam (Alprazolam) 2 Mg Tablet, 2 MG PO TID PRN for ANXIETY, TAB 11/14/24 Pregabalin (Pregabalin) 50 Mg Capsule, 1 CAP PO BID MDD 2 Capsule(s) for 30 Days, #60 CAP 0 Refills 11/14/24 Doxycycline Hyclate (Doxycycline Hyclate) 100 Mg Capsule, 1 CAP PO BID for 10 Days, #20 CAP 0 Refills 11/14/24 Clonidine HCl (Clonidine HCl) 0.1 Mg Tablet, 0.1 MG PO DAILY, TAB 11/14/24 Sevelamer Carbonate (Renvela) 0.8 Gram Powd.pack, 800 MG PO TIDMEALS 11/14/24 Past Medical History Past Medical History: Anxiety, Bipolar, Depression, Diabetes-Type II, High Cholesterol, Hypertension, Renal Disese, Schizophrenia Medical History Other: ESRD, BLIND IN L EYE Past Surgical History: Cholecystectomy, Family History Family History: CAD, DM, HTN, Negative Social History Social History: Negative, [facility] Female( History) History: Not Applicable ROS Dictation CONSTITUTIONAL: No chills, no fever, no weakness, no diaphoresis, no malaise. HEAD/FACE: No signs of trauma. EENT: No eye pain, no blurred vision, no tearing, no double vision, no ear pain, no ear discharge, no nose pain, no nasal congestion, no throat pain, no throat swelling, no mouth pain. RESPIRATORY: No cough, no orthopnea, no SOB, no stridor, no wheezing. CARDIOVASCULAR: No chest pain, no edema, no palpitations, no syncope. GASTROINTESTINAL/ABDOMINAL: Abdominal pain and distention GENITOURINARY: No abnormal discharge, no dysuria, no frequent urination, no hematuria. No complaints of pain in the genitals. MUSCULOSKELETAL: No back pain, no gout, no joint pain, no joint swelling, no muscle pain, no muscle stiffness, no neck pain. INTEGUMENTARY: No change in color, no change in hair/nails, no dryness, no lesion, no lumps, no rash. NEUROLOGICAL/PSYCH: No anxiety, not depressed, no emotional problem, no headache, no numbness, no pre-existing deficit, no history of seizures, no t remors, no weakness. HEMATOLOGIC/LYMPHATIC: Not anemic, no history of blood clots, no apparent bleeding, no bruising, glands not swollen. All Systems Negative, Except as Noted. Physical Exam Physical Exam Dictation VITAL SIGNS: Reviewed. GENERAL APPEARANCE: Alert, oriented x3, no acute distress, obese. HEAD AND FACE: Non-traumatic. EYES: PERRL, pink conjunctivas, eyelid no trauma, anterior chamber clear. EARS: Pinnas intact and no signs of trauma or erythema. Ear canals clear and no discharge. TMs no erythema. NOSE: No discharge, no bleeding. OROPHARYNX: Mouth normal, teeth no caries, tongue pink. Pharynx clear, no erythema. Tonsils no exudates, no abscesses noted. Mucous membrane moist. NECK: Supple, non-tender, no thyromegaly, no masses, no JVD, no bruits. BREAST: Deferred. CHEST: No tenderness, no crepitus, no paradoxical movement, no retractions. LUNGS: Clear, well-ventilated, symmetric, no rales, no wheezing, no rhonchi, no stridor, good breath sounds bilaterally. HEART: Regular rate, regular rhythm, no murmur, no gallops. VASCULAR: No peripheral edema. ABDOMEN: Abdominal distention no guarding no rebound tenderness RECTAL: Deferred. GENITAL: Deferred. NEUROLOGICAL: Normal speech, gross motor function intact, gross sensory function intact. MUSCULOSKELETAL: Neck nontender, full range of motion, back nontender, full ra nge of motion. EXTREMITIES: Nontender, full range of motion. SKIN: Color pink, dry, no turgor, no rash, no lacerations, no abrasions, no contusions. LYMPHATICS: Deferred. Results Laboratory and Microbiology Lab and Micro Result Laboratory Tests Test 03/18/25 13:04 White Blood Count 5.4 K/uL (4.8-10.8) Red Blood Count 3.90 MIL/uL (4.00-5.50) L Hemoglobin 11.6 g/dL (12.0-16.0) L Hematocrit 36.6 % (36-48) Mean Corpuscular Volume 93.8 fL (79-99) Mean Corpuscular Hemoglobin 29.7 pg (27.0-33.0) Mean Corpuscular Hemoglobin Concent 31.7 g/dL (32.0-36.0) L Red Cell Distribution Width 16.6 % (11.0-15.5) H Platelet Count 162 K/uL (130-400) Mean Platelet Volume 10.1 fL (7.5-10.5) Immature Granulocyte % (Auto) 0.4 % (0-1) Neutrophils (%) (Auto) 69.3 % (40.0-77.0) Lymphocytes (%) (Auto) 11.5 % (21.0-51.0) L Monocytes (%) (Auto) 14.3 % (3.0-13.0) H Eosinophils (%) (Auto) 3.9 % (0.0-8.0) Basophils (%) (Auto) 0.6 % (0.0-5.0) Neutrophils # (Auto) 3.7 K/uL (1.8-7.7) Lymphocytes # (Auto) 0.6 K/uL (1.0-4.8) L Monocytes # (Auto) 0.8 K/uL (0.1-1.0) Eosinophils # (Auto) 0.21 K/uL (0.00-0.70) Basophils # (Auto) 0.03 K/uL (0.00-0.20) Absolute Immature Granulocyte (auto 0.02 K/uL (0-1) Nucleated Red Blood Cells 0.0 % (0.0-0.19) Prothrombin Time 11.9 SEC (9.6-11.6) H Prothromb Time International Ratio 1.14 (0.85-1.15) Activated Partial Thromboplast Time 25.6 SEC (26.3-35.5) L Sodium Level 134 mmol/L (136-145) L Potassium Level 5.7 mmol/L (3.5-5.1) H Chloride Level 95 mmol/L (101-111) L Carbon Dioxide Level 31 mmol/L (21-32) Blood Urea Nitrogen 34 mg/dL (7-18) H Creatinine 5.4 mg/dL (0.5-1.0) H Glomerular Filtration Rate Calc 9 mL/min (>90) Random Glucose 92 mg/dL (70-105) Total Calcium 8.0 mg/dL (8.5-10.1) L Total Bilirubin 1.6 mg/dL (0.2-1.0) H Direct Bilirubin 1.1 mg/dL (0.0-0.3) H Aspartate Amino Transf (AST/SGOT) 18 U/L (10-37) Alanine Aminotransferase (ALT/SGPT) 10 U/L (12-78) L Alkaline Phosphatase 213 U/L (50-136) H Total Protein 8.4 g/dL (6.0-8.3) H Albumin 3.0 g/dL (3.5-5.0) L Lipase 43 U/L (16-77) MDM CC: Abdominal pain in the distention, mild dyspnea due to the pain and distention Historian: Patient Comorbidities: ESRD dialysis dependent, schizophrenia, liver disease/cirrhosis Limitations: None Differential diagnosis: Fluid overload, cyanosis, house BP, electrolyte abnormalities, sepsis, other Vital signs: Mild hypertension otherwise stable. Labs show normal CBC. Mild elevations of the coags. Chemistry panel shows a potassium 5.7 creatinine 5.4 BUN of 34. Elevated liver enzymes. CT of the abdomen and pelvis shows extensive ascites, trace pleural effusions has been, extensive body wall edema most severe in the left flank due to fluid overload, hepatomegaly. Patient has a anasarca. We will benefit from dialysis unlikely a paracentesis. I attempted to contact IR, but they are gone for the day. Patient sees Dr. Olea for dialysis. She is due for dialysis tomorrow. We will admit for dialysis and paracentesis. Treatment in ED: Hyperkalemia protocol with the elevated potassium. Hospitalist consulted for admission. ED Course Orders Procedure Category Date Status Time Cbc With Differential LAB 03/18/25 Complete 12:55 Basic Metabolic Panel LAB 03/18/25 Complete 12:55 Prothrombin Time With LAB 03/18/25 Complete INR 12:55 Partial LAB 03/18/25 Complete Thromboplastin Time 12:55 Hepatic Function Panel LAB 03/18/25 Complete 14:04 Lipase LAB 03/18/25 Complete 14:04 Ct Abdomen/Pelvis W/O CT 03/18/25 Resulted Contrast 14:04 Hydromorphone 0.5mg PHA 03/18/25 Complete Syg (Dilaudid 0.5mg 14:30 12 Lead Ekg Tracing- EKG 03/18/25 Logged Technical 16:31 Calcium Gluc 1gm PHA 03/18/25 In Process (Calcium Gluc 1gm 17:00 Dextrose 50%-Water PHA 03/18/25 In Process (D50w) 17:00 Insulin Regular, PHA 03/18/25 In Process Human 3ml (Humulin R 17:00 Na Zircon PHA 03/18/25 In Process Cyclosil-Lokelma 10g 17:00 Current Medications Medications (Trade) Dose Ordered Sig/Andres Route PRN Reason Start Time Stop Time Status Last Admin Dose Admin Calcium Gluconate 1 gm/Sodium Chloride 110 ml @ 110 mls/hr ONCE ONCE IV 03/18/25 17:00 03/18/25 17:59 Dextrose (D50w) 50 ml ONCE ONCE IV 03/18/25 17:00 03/18/25 17:01 Hydromorphone HCl (DiLAUDid 0.5MG INJ) 0.5 mg ONCE ONCE IVP 03/18/25 14:30 03/18/25 14:31 DC 03/18/25 14:35 Insulin Human Regular (humuLIN R 100 UNIT/ML 3ML) 5 unit ONCE ONCE IV 03/18/25 17:00 03/18/25 17:01 Sodium Zirconium Cyclosilicate (Lokelma 10gm Powder) 10 gm ONCE ONCE PO 03/18/25 17:00 03/18/25 17:01 Vital Signs Date Time Temp Pulse Resp B/P (MAP) Pulse Ox O2 Delivery O2 Flow Rate FiO2 03/18/25 16:04 99.0 85 20 170/94 95 Room Air* 0 21 03/18/25 14:10 98.4 82 22 165/106 100 Room Air* 0 21 03/18/25 12:51 98.2 83 16 184/90 99 Room Air 0 DX & DISP Disposition: Inpatient Departure Impression: Primary Impression: Ascites Additional Impressions: Fluid overload, Hyperkalemia Condition: Stable Referrals: GLO MAYEN MD (PCP) BETINA MISHRA DO Mar 18, 2025 14:07
[2025-03-18 14:34] LABS: ASPARTATE AMINOTRANSFERASE 18.0 U/L (10-37); TOTAL PROTEIN, SERUM 8.4 g/dL (6.0-8.3)
--- NOTE | 2025-03-18 16:01 | HMCIMG ---
Exam: CT Abdomen and Pelvis without contrast Clinical Indication: Abdominal pain and distension. Technique: Noncontrast axial CT images of the abdomen and pelvis were obtained with multiplanar reformations. Comparison: Prior CT abdomen and pelvis dated August 15, 2024. Radiation Dose: CTDIvol: 18 mGy DLP: 1249.20 mGycm Findings: Lung Bases: Trace left-sided pleural effusion with minimal compressive atelectasis. Minimal streaky atelectasis is also present in the right lower lobe. Heart and Mediastinum: Mild cardiomegaly is present. Coronary arterial calcifications and mitral and aortic valve annular calcifications are noted. Liver: The liver is enlarged, measuring approximately 19.4 cm in craniocaudal dimension, without focal hepatic lesion. Gallbladder and Biliary Tree: The gallbladder is surgically absent. No biliary ductal dilatation is identified. Spleen: The spleen measures approximately 13.2 cm, consistent with borderline splenomegaly. No focal splenic lesion is seen. Pancreas: The pancreas is unremarkable. Adrenal Glands: The adrenal glands are unremarkable. Kidneys and Urinary Tract: Both kidneys are atrophic and shrunken with bilateral intrarenal segmental arterial calcifications. No hydronephrosis is present. Stomach and Duodenum: A small hiatal hernia is present. A diverticulum arises from the medial wall of the second portion of the duodenum, measuring approximately 2.5 cm and containing airfluid levels. Small and Large Bowel: A moderate amount of fecal material is present within the colon. No bowel obstruction is identified. The appendix is unremarkable. Peritoneal Cavity: Extensive ascites is present throughout the abdomen and pelvis. Vasculature: The abdominal aorta and its major branches demonstrate atheromatous calcifications without aneurysmal dilatation. Pelvic Organs: Myometrial calcifications are present. Abdominal Wall and Soft Tissues: Extensive body wall edema is present, most pronounced in the left flank region. Bones: Degenerative changes are noted in the spine. Chronic-appearing compression deformities are present at T11 and L2 involving the superior endplates, with approximately 10% and 20% vertebral body height loss, respectively. Impression: * Extensive ascites. * Trace left pleural effusion with minimal bilateral basal atelectasis. * Extensive body wall edema, most severe in the left flank region. * Hepatomegaly with borderline splenomegaly. * Bilateral renal atrophy with intrarenal arterial calcifications. 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 * Chronic compression deformities at T11 and L2. Compared with the prior CT abdomen and pelvis dated August 15, 2024, there is interval development of pleural effusion, ascites, and extensive body wall edema, consistent with anasarca. /[place]
[2025-03-18] MEDS: DEXTROSE 50%-WATER 50 ML DISP.SYRIN IV ONE (16:55)
[2025-03-18] MEDS: NA ZIRCON CYCLOSIL(LOKELMA 10GM) PO ONE (17:04)
[2025-03-18] MEDS: CALCIUM GLUC 1GM 1 GM in 0.9%NACL 100ML 100 ML IV ONE (17:04)
[2025-03-18 17:20] VITALS: BP 156/78; PULSE 85; RESP 20; TEMP 97.6; O2SAT 97
--- NOTE | 2025-03-19 07:12 | EKG ---
[facility] Test Date: 2025-03-18 Test Time: 16:54:02 Pat Name: KAYCEE CHILDRESS Department: [facility] Room: Gender: F Lopper: [id number] : 1970 Requested By: BETINA MISHRA Order Number: [id number] Reading MD: Bong Mane Measurements Intervals [place] Rate: 84 P: 46 [place]: 169 QRS: 46 QRSD: 100 T: 43 QT: 394 QTc: 466 Interpretive Statements Sinus rhythm Compared to ECG 08/23/2024 11:35:21 T-wave abnormality no longer present Electronically Signed On 03-19-2025 16:15:37 [employer]PORATE SALES REPRESENTATIVE by Bong Mane Please click the below link to view image of tracing.
== END 2025-03-18 18:05 | disposition home or self-care (01) ==
LOC: EDH 12:50
DX: R18.8 Other ascites (principal); E87.70 Fluid overload, unspecified; E87.5 Hyperkalemia; E11.22 Type 2 diabetes mellitus with diabetic chronic kidney disease; I12.0 Hypertensive chronic kidney disease with stage 5 chronic kidney disease or end stage renal disease; Z79.899 Other long term (current) drug therapy; N18.6 End stage renal disease; F20.9 Schizophrenia, unspecified; E78.00 Pure hypercholesterolemia, unspecified; F31.9 Bipolar disorder, unspecified; F41.9 Anxiety disorder, unspecified; H54.62 Unqualified visual loss, left eye, normal vision right eye; Z99.2 Dependence on renal dialysis; Z90.49 Acquired absence of other specified parts of digestive tract
CPT/HCPCS: 99285; 74176; 96365; 96375; 80076; 80048; 83690; 85025; 85610; 85730; 82948; 36415; 93005; J1815; J7070; J0612; J1171

== ENCOUNTER 2025-03-20 09:11 | Observation (INO) | payer OTHER, MEDICAID ==
[~2025-03-20] VITALS: Ht 172.7 cm; Wt 117.9 kg
[2025-03-20 09:44] LABS: IMMATURE GRANULOCYTE ABSOLUTE 0.01 K/uL (0-1); NUCLEATED RED BLOOD CELLS 0.0 % (0.0-0.19); PLATELET COUNT (AUTO) 141 K/uL (130-400); RED BLOOD CELL COUNT(AUTO) 3.88 MIL/uL (4.00-5.50); RED CELL DISTRIBUTION WIDTH 16.6 % (11.0-15.5); WHITE BLOOD COUNT (AUTO) 4.6 K/uL (4.8-10.8)
[2025-03-20] MEDS: FAMOTIDINE 20MG VIAL IV ONE (09:54)
[2025-03-20 10:01] LABS: INR 1.18 (0.85-1.15)
[2025-03-20 10:12] LABS: CREATININE 4.3 mg/dL (0.5-1.0); GLOMERULAR FILTR. RATE CALC 11.0 mL/min (>90); GLUCOSE,RANDOM 142.0 mg/dL (70-105); SODIUM SERUM 134.0 mmol/L (136-145); UREA NITROGEN, BLOOD 25.0 mg/dL (7-18)
[2025-03-20 10:16] LABS: ASPARTATE AMINOTRANSFERASE 20.0 U/L (10-37); TOTAL PROTEIN, SERUM 7.7 g/dL (6.0-8.3)
--- NOTE | 2025-03-20 11:28 | NUR ---
PATIENT MOVED FROM [facility] TO ED 14.
--- NOTE | 2025-03-20 11:52 | ERN ---
General Chief Complaint: Abdominal Pain Stated Complaint: ASCITES Time Seen by MD: 09:20 History of Present Illness Initial Comments 54-year-old female who came in for abdominal pain. Patient sent by primary care physician for paracentesis. Patient otherwise has no concerns. Allergies: Coded Allergies: No Known Drug Allergies (Unverified Allergy, Unknown, 10/17/22) Home Meds Reported Medications Diphenhydramine HCl (Benadryl) 50 Mg Cap, 1 CAP PO DAILY PRN for ITCHING for 30 Days, #30 CAP 0 Refills 11/14/24 Alprazolam (Alprazolam) 2 Mg Tablet, 2 MG PO TID PRN for ANXIETY, TAB 11/14/24 Pregabalin (Pregabalin) 50 Mg Capsule, 1 CAP PO BID MDD 2 Capsule(s) for 30 Days, #60 CAP 0 Refills 11/14/24 Doxycycline Hyclate (Doxycycline Hyclate) 100 Mg Capsule, 1 CAP PO BID for 10 Days, #20 CAP 0 Refills 11/14/24 Clonidine HCl (Clonidine HCl) 0.1 Mg Tablet, 0.1 MG PO DAILY, TAB 11/14/24 Sevelamer Carbonate (Renvela) 0.8 Gram Powd.pack, 800 MG PO TIDMEALS 11/14/24 Past Medical History Past Medical History: Anxiety, Bipolar, Diabetes-Type II, High Cholesterol, Hypertension, Liver Disease, Renal Disese, Renal Failure, Schizophrenia Medical History Other: NEUROPATHY Past Surgical History: Cholecystectomy, , RAVA Family History Family History: CAD, DM, HTN, Negative Social History Social History: Negative, Lives in Jail Female( History) History: Not Applicable ROS Dictation Abdominal pain Physical Exam General Appearance: (+) no apparent distress Orientation: (+) alert, (+) oriented x 3 Neck: (+) normal inspection, (+) supple Respiratory: (+) chest non-tender, (+) lungs clear Heart: (+) regular, (+) no gallop Gastrointestinal: (+) soft, (+) non-tender Results Laboratory and Microbiology Lab and Micro Result Laboratory Tests Test 03/20/25 09:30 White Blood Count 4.6 K/uL (4.8-10.8) L Red Blood Count 3.88 MIL/uL (4.00-5.50) L Hemoglobin 11.6 g/dL (12.0-16.0) L Hematocrit 36.4 % (36-48) Mean Corpuscular Volume 93.8 fL (79-99) Mean Corpuscular Hemoglobin 29.9 pg (27.0-33.0) Mean Corpuscular Hemoglobin Concent 31.9 g/dL (32.0-36.0) L Red Cell Distribution Width 16.6 % (11.0-15.5) H Platelet Count 141 K/uL (130-400) Mean Platelet Volume 10.6 fL (7.5-10.5) H Immature Granulocyte % (Auto) 0.2 % (0-1) Neutrophils (%) (Auto) 66.5 % (40.0-77.0) Lymphocytes (%) (Auto) 13.9 % (21.0-51.0) L Monocytes (%) (Auto) 14.4 % (3.0-13.0) H Eosinophils (%) (Auto) 4.1 % (0.0-8.0) Basophils (%) (Auto) 0.9 % (0.0-5.0) Neutrophils # (Auto) 3.1 K/uL (1.8-7.7) Lymphocytes # (Auto) 0.6 K/uL (1.0-4.8) L Monocytes # (Auto) 0.7 K/uL (0.1-1.0) Eosinophils # (Auto) 0.19 K/uL (0.00-0.70) Basophils # (Auto) 0.04 K/uL (0.00-0.20) Absolute Immature Granulocyte (auto 0.01 K/uL (0-1) Nucleated Red Blood Cells 0.0 % (0.0-0.19) Prothrombin Time 12.3 SEC (9.6-11.6) H Prothromb Time International Ratio 1.18 (0.85-1.15) H Activated Partial Thromboplast Time 25.9 SEC (26.3-35.5) L Sodium Level 134 mmol/L (136-145) L Potassium Level 5.5 mmol/L (3.5-5.1) H Chloride Level 95 mmol/L (101-111) L Carbon Dioxide Level 31 mmol/L (21-32) Blood Urea Nitrogen 25 mg/dL (7-18) H Creatinine 4.3 mg/dL (0.5-1.0) H Glomerular Filtration Rate Calc 11 mL/min (>90) Random Glucose 142 mg/dL (70-105) H Lactic Acid Level 1.7 mmol/L (0.8-2.5) Total Calcium 7.8 mg/dL (8.5-10.1) L Total Bilirubin 1.7 mg/dL (0.2-1.0) H Direct Bilirubin 1.0 mg/dL (0.0-0.3) H Aspartate Amino Transf (AST/SGOT) 20 U/L (10-37) Alanine Aminotransferase (ALT/SGPT) 8 U/L (12-78) L Alkaline Phosphatase 207 U/L (50-136) H Troponin I High Sensitivity 25 ng/L (4-50) Total Protein 7.7 g/dL (6.0-8.3) Albumin 2.6 g/dL (3.5-5.0) L Lipase 31 U/L (16-77) Procalcitonin 0.24 ng/mL (0.05-0.5) MDM MDM: Differential diagnosis: Rationale: Tests considered and ordered secondary to shared decision making include: labs, ECG and radiology Previous outside records reviewed: Old ER visits. Risk of complication and/or morbidity or mortality of patient management: None Medications-Per medication reconciliation Need for hospitalization: Patient does meet criteria for hospitalization. Need for emergency major/minor surgery: No There are no social concerns with this patient. Prescription drug management Prescriptions will include symptomatic care Patient's prior external medical records from other ER visits were reviewed by me as indicated. Prior testing and results from previous visits were reviewed. Prior tests were taken into account with medical decision making and resource utilization, independent historian/historians were used to obtain complete medical history. I independently interpreted the test that were performed, results were reviewed by me and considered findings on radiology if ordered. Medical management and examination interpretation discussions were had by me with other qualified healthcare professionals as indicated for the patient's care. ED Course Orders Procedure Category Date Status Time 12 Lead Ekg Tracing- EKG 03/20/25 Logged Technical 09:20 Cbc With Differential LAB 03/20/25 Complete 09:20 Basic Metabolic Panel LAB 03/20/25 Complete 09:20 Hepatic Function Panel LAB 03/20/25 Complete 09:20 Lactic Acid LAB 03/20/25 Complete 09:20 Lipase LAB 03/20/25 Complete 09:20 Procalcitonin LAB 03/20/25 Complete 09:20 Pt And Ptt LAB 03/20/25 Complete 09:20 Troponin I High LAB 03/20/25 Complete Sensitivity 09:20 Ondansetron 4mg Inj PHA 03/20/25 Complete (Zofran 4mg Inj) 09:30 Famotidine 20mg Vial PHA 03/20/25 Complete (Pepcid 20mg Vial) 09:30 Morphine 2mg Syg PHA 03/20/25 Complete (Morphine 2mg Syg) 09:30 Sodium Zirconium PHA 03/20/25 Complete Cyclosilicate 11:30 Current Medications Medications (Trade) Dose Ordered Sig/Andres Route PRN Reason Start Time Stop Time Status Last Admin Dose Admin Famotidine (Pepcid 20mg Vial) 20 mg ONCE ONCE IV 03/20/25 09:30 03/20/25 09:31 DC 03/20/25 09:54 Morphine Sulfate (morPHINE 2MG SYG) 2 mg ONCE ONCE IVP 03/20/25 09:30 03/20/25 09:31 DC 03/20/25 09:55 Ondansetron HCl (zoFRAN 4MG INJ) 4 mg ONCE ONCE IVP 03/20/25 09:30 03/20/25 09:31 DC 03/20/25 09:55 Sodium Zirconium Cyclosilicate (Lokelma) 5 gm ONCE ONCE PO 03/20/25 11:30 03/20/25 11:31 DC Vital Signs Date Time Temp Pulse Resp B/P (MAP) Pulse Ox O2 Delivery O2 Flow Rate FiO2 03/20/25 10:59 97.9 68 16 141/87 97 Room Air* 0 21 03/20/25 09:14 97.9 68 16 153/91 97 Room Air 0 DX & DISP Disposition: Inpatient Departure Impression: Primary Impression: Ascites Additional Impression: End stage renal disease Condition: Stable Referrals: GLO MAYEN MD (PCP) MARINA SEPULVEDA MD Mar 20, 2025 11:52
[2025-03-20] MEDS: SODIUM ZIRCONIUM CYCLOSILICATE 5 GM POWD.PACK PO ONE (12:11)
[2025-03-20] MEDS ORDERED: PHARMACY COMMUNICATION 1 EACH EACH MISC SCH (13:30)
--- NOTE | 2025-03-20 13:30 | NUR ---
U/S GD PARACENTESIS PROCEDURE PERFORMED BY DR Ran PICKENS. PUNCTURE SITE RLQ AND PATIENT TOLERATED PROCEDURE WELL. TOTAL REMOVED 4.5 LITERS OF CLOUDY YELLOW FLUID. END OF PROCEDURE AT 1315. CATHETER REMOVED AND DRESSING APPLIED. NO BLEEDING NOTED. PATIENT TRANSPORTED TO ED VIA STRETCHER AT 1330 AND REPORT GIVEN TO EMILIO MARI. AAO X3 WITH NO C/O PAIN. SPECIMEN SENT TO LAB. ALBUMIN 25% 50 GRAMS IV GIVEN DURING PROCEDURE.
[2025-03-20] MEDS: ALBUMIN HUMAN 25% 200 ML IV ONE (13:34)
--- NOTE | 2025-03-20 13:51 | NUR ---
PARACENTESIS: RLQ 4.5 LITERS REMOVED DRESING DRY AND INTACT 50G OF ALBUMIUN GIVEN PATIENT TOLERATED WELL
[2025-03-20 14:14] LABS: BODY FLUID RBC 1270 /cu. mm.; BODY FLUID WBC 511 /cu. mm.
[2025-03-20 14:20] LABS: APPEARANCE BODY FLUID SLIGHTLY CLOUDY (CLEAR); COLOR,BODY FLUID YELLOW (LT YELLOW); SPECIMENTYPE,BODY FLUID ASCITES; TOTAL VOLUME,BODY FLUID 4500 mL
--- NOTE | 2025-03-20 14:49 | HMCIMG ---
EXAM: CT Abdomen and Pelvis Without IV contrast CLINICAL HISTORY: Abdominal pain TECHNIQUE: Axial computed tomography images of the abdomen and pelvis without intravenous contrast. CONTRAST: No IV contrast. COMPARISON: 03/18/2025. FINDINGS: LUNG BASES: Stable trace left pleural effusion. LIVER: The liver is enlarged, but stable. Stable mild liver megaly. GALLBLADDER AND BILE DUCTS: The gallbladder appears within normal limits. No radioopaque gallstones are seen. No biliary ductal dilatation is evident. PANCREAS: Unremarkable. SPLEEN: Unremarkable. ADRENAL GLANDS: Unremarkable. KIDNEYS, URETERS, AND BLADDER: No renal or ureteral stones. Stable bilateral renal atrophy. No hydronephrosis. STOMACH AND BOWEL: Unremarkable appearance of the stomach and bowel. No evidence of bowel obstruction. No evidence suggesting enteritis or colitis. APPENDIX: No evidence of acute appendicitis on CT examination. PERITONEUM: Small to moderate ascites which is decreased when compared with the prior exam. LYMPH NODES: No lymphadenopathy is evident. REPRODUCTIVE: Unremarkable as visualized. VASCULATURE: No evidence of abdominal aortic aneurysm. BONES: No aggressive appearing osseous lesion. No acute osseous pathology evident. MISCELLANEOUS: Stable anasarca. IMPRESSION: 1. Small to moderate ascites which is decreased when compared with the prior exam. 2. Otherwise, no significant change. /[place]
[2025-03-20 15:28] LABS: BF LYMPHOCYTE 3 %; BF MACROPHAGE 46; BF MESOTHELIAL 12 %; BF NEUTROPHIL 38.0 %; BF OTHER CELLS 1; BF TOTAL CELLS COUNTED 100
--- NOTE | 2025-03-20 16:10 | HP ---
[facility] HISTORY & PHYSICAL Date Patient Seen: Mar 20, 2025 Time of Visit: 16:10 Supervising Physician: Dr. Crawley Primary Care Physician: Dr. Sal Jarvis Outpatient Specialists: [ ] Inpatient Consults: [ ] PROBLEM LIST: Ascites requiring paracentesis Liver cirrhosis Anxiety Bipolar Diabetes-Type II High Cholesterol Hypertension Liver Disease Renal Disese Renal Failure Schizophrenia HPI: Pt is a 54 year old female with a PMH including DM2 and liver cirrhosis who waws advised to report to the ED for paracentesis. On evaluation patient has distant bowel sounds and posistive fluid wave, she denies any acute distress at this time and is agreeable to paracentesis top be performed bu IR today. We will evaluate for possible DC after procedure today. Questions answered at bedside. pt bloodwork is unremarkable and she is hemodynamically stable. Plan Pt to go to IR for paracentesis today Possible DC if no other acute findings PAST MEDICAL HX: see above PAST SURGICAL HX: noncontributory SOCIAL HISTORY: No tobacco, ETOH, or illicit drug use Coded Allergies: No Known Drug Allergies (Unverified Allergy, Unknown, 10/17/22) REVIEW OF SYSTEMS: 12 point ROS reviewed with patient. Pertinent positives mentioned above. Otherwise negative. PHYSICAL EXAM: GENERAL: alert, weak, awake oriented x 3 HEENT: EOMI, Sclera non icteric, moist mucosa NECK: Supple, no JVD, trachea midline LUNGS: Clear breath sounds bilaterally. No wheezes HEART: Regular rate and rhythm. Normal S1 and S2, without murmurs ABD: Abdomen soft, nontender. Bowel sounds present EXT: No clubbing cyanosis or edema NEURO: Alert and oriented to person, follows commands Vital Signs (last 8hr) Date Time Temp Pulse Resp B/P (MAP) Pulse Ox O2 Delivery O2 Flow Rate FiO2 03/20/25 13:50 97.9 80 13 149/95 99 Room Air* 0 21 03/20/25 10:59 97.9 68 16 141/87 97 Room Air* 0 21 03/20/25 09:14 97.9 68 16 153/91 97 Room Air 0 LABS: Hematology Labs: Test 03/20/25 09:30 Range/Units White Blood Count 4.6 L 4.8-10.8 K/uL Red Blood Count 3.88 L 4.00-5.50 MIL/uL Hemoglobin 11.6 L 12.0-16.0 g/dL Hematocrit 36.4 36-48 % Mean Corpuscular Volume 93.8 79-99 fL Mean Corpuscular Hemoglobin 29.9 27.0-33.0 pg Mean Corpuscular Hemoglobin Concent 31.9 L 32.0-36.0 g/dL Red Cell Distribution Width 16.6 H 11.0-15.5 % Platelet Count 141 130-400 K/uL Mean Platelet Volume 10.6 H 7.5-10.5 fL Immature Granulocyte % (Auto) 0.2 0-1 % Neutrophils (%) (Auto) 66.5 40.0-77.0 % Lymphocytes (%) (Auto) 13.9 L 21.0-51.0 % Monocytes (%) (Auto) 14.4 H 3.0-13.0 % Eosinophils (%) (Auto) 4.1 0.0-8.0 % Basophils (%) (Auto) 0.9 0.0-5.0 % Neutrophils # (Auto) 3.1 1.8-7.7 K/uL Lymphocytes # (Auto) 0.6 L 1.0-4.8 K/uL Monocytes # (Auto) 0.7 0.1-1.0 K/uL Eosinophils # (Auto) 0.19 0.00-0.70 K/uL Basophils # (Auto) 0.04 0.00-0.20 K/uL Absolute Immature Granulocyte (auto 0.01 0-1 K/uL Nucleated Red Blood Cells 0.0 0.0-0.19 % Chemistry Labs: Test 03/20/25 09:30 Range/Units Sodium Level 134 L 136-145 mmol/L Potassium Level 5.5 H 3.5-5.1 mmol/L Chloride Level 95 L 101-111 mmol/L Carbon Dioxide Level 31 21-32 mmol/L Blood Urea Nitrogen 25 H 7-18 mg/dL Creatinine 4.3 H 0.5-1.0 mg/dL Glomerular Filtration Rate Calc 11 >90 mL/min Random Glucose 142 H 70-105 mg/dL Lactic Acid Level 1.7 0.8-2.5 mmol/L Total Calcium 7.8 L 8.5-10.1 mg/dL Total Bilirubin 1.7 H 0.2-1.0 mg/dL Direct Bilirubin 1.0 H 0.0-0.3 mg/dL Aspartate Amino Transf (AST/SGOT) 20 10-37 U/L Alanine Aminotransferase (ALT/SGPT) 8 L 12-78 U/L Alkaline Phosphatase 207 H 50-136 U/L Troponin I High Sensitivity 25 4-50 ng/L Total Protein 7.7 6.0-8.3 g/dL Albumin 2.6 L 3.5-5.0 g/dL Lipase 31 16-77 U/L Procalcitonin 0.24 0.05-0.5 ng/mL Coagulation Labs: Test 03/20/25 09:30 Range/Units Prothrombin Time 12.3 H 9.6-11.6 SEC Prothromb Time International Ratio 1.18 H 0.85-1.15 Activated Partial Thromboplast Time 25.9 L 26.3-35.5 SEC DIAGNOSTICS / RADIOLOGY RESULTS: [ ] PLAN NEURO: Minimize central acting medications as possible. Maintain fall precautions, adequate lighting during the day PULMONARY: Supplemental 02 as needed. Maintain aspiration precautions at all times CARDIOVASCULAR: Follow hemodynamics. Vital signs per facility protocol GI & NUTRITION: Continue with nutritional support. Continue stool softeners and laxatives as needed. KIDNEYS & ELECTROLYTES: Strict monitoring of intake, output and overall fluid balance. Avoid nephrotoxic medications to the extent possible. Medications to be dosed according to renal function. Monitor electrolytes and replace as needed ENDOCRINE: Maintain blood glucose between 100-180 at all times. Hypoglycemia protocol in place INFECTIOUS DISEASE: Trend temperature, WBC and procalcitonin level Follow cultures, deescalate antibiotics as soon as possible. Panculture if new onset fever ONCOLOGY/HEMATOLOGY/COAGULATION: Monitor for s/s of bleeding Monitor hemoglobin, coagulation studies as needed SKIN: Pressure ulcer prevention per facility protocol Specialty mattress ORTHO/REHAB: Continue PT/OT Prophylaxis: Continue GI and DVT prophylaxis Code Status: Full Resuscitation Disposition: TBD Other: Total patient care time exceeds 35 minutes excluding all procedures. DANITA COSTA PAC Mar 20, 2025 16:10 MICHAEL CRAWLEY MD Mar 25, 2025 09:30
--- NOTE | 2025-03-20 16:19 | NUR ---
REPORT GIVEN TO NURSE LUGO.
--- NOTE | 2025-03-20 16:24 | NUR ---
NGUYỄN SAMAYOA AT BEDSIDE
[2025-03-20] MEDS ORDERED: NITROGLYCERIN 0.4 MG SL TAB SL PRN (16:30)
[2025-03-20] MEDS ORDERED: LOPERAMIDE HCL 2 MG CAP PO PRN (16:30)
[2025-03-20] MEDS ORDERED: MAG/ALUM/SIMETH 30 ML UDCUP PO PRN (16:30)
[2025-03-20] MEDS ORDERED: BENZOCAINE/MENTH/CETYLPYRD CL 1 EACH LOZENGE MM PRN (16:30)
[2025-03-20] MEDS ORDERED: LIDOCAINE HCL 2% VISCOUS 30 ML, MAG/ALUM/SIMETH 30ML 30 ML, DICYCLOMINE HCL 20 MG PO PRN (16:30)
[2025-03-20] MEDS ORDERED: guaiFENesin-DM 200/20MG 10ML PO PRN (16:30)
[2025-03-20] MEDS ORDERED: ARTIFICAL TEARS SOL 15 ML OP PRN (16:30)
[2025-03-20] MEDS ORDERED: LACTULOSE 20 GM/30 ML UDCUP PO PRN (16:30)
--- NOTE | 2025-03-20 16:35 | DS ---
[facility] DISCHARGE SUMMARY Date Patient Seen: Mar 20, 2025 Time of Visit: 16:35 Supervising Physician: Dr. Crawley Primary Care Physician: Dr. Rian Jarvis Outpatient Specialists: [ ] Inpatient Consults: [ ] HOSPITAL COURSE: HPI (per admitting provider) Pt is a 54 year old female with a PMH including DM2 and liver cirrhosis who waws advised to report to the ED for paracentesis. On evaluation patient has distant bowel sounds and posistive fluid wave, she denies any acute distress at this time and is agreeable to paracentesis top be performed bu IR today. We will evaluate for possible DC after procedure today. Questions answered at bedside. pt bloodwork is unremarkable and she is hemodynamically stable. The patient was treated for the following problems: Pt evaluated in the ED after her paracentesis was performed. Patient abdoment is significantly less distended at this time. She denies any acute pain, no new symptoms at this time. Patient is agreeable to be discharged home. Advised to follow up with PCP next week. 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 PCP notified of patients admission, hospital course and discharge. PHYSICAL EXAM: GENERAL: alert, weak, awake oriented x 3 HEENT: EOMI, Sclera non icteric, moist mucosa NECK: Supple, no JVD, trachea midline LUNGS: Clear breath sounds bilaterally. No wheezes HEART: Regular rate and rhythm. Normal S1 and S2, without murmurs ABD: Abdomen soft, nontender. Bowel sounds present EXT: No clubbing cyanosis or edema NEURO: Alert and oriented to person, follows commands FOLLOW-UP: Follow-up with PCP in 2-3 days RECOMMENDATIONS: See Discharge Instructions This case was seen and discussed with my supervising physician. More than 30 minutes spent on discharge process, including evaluation of the patient, discussion with nursing staff, medication reconciliation and follow-up appointments DANITA COSTA Mar 20, 2025 16:35 MICHAEL CRAWLEY MD Mar 25, 2025 09:30
[2025-03-20 17:34] VITALS: BP 150/79; PULSE 81; RESP 13; TEMP 98.2; O2SAT 95
[2025-03-20] MEDS ORDERED: FAMOTIDINE 20MG VIAL IV SCH (21:00)
[2025-03-20] MEDS ORDERED: FAMOTIDINE 20MG TAB PO SCH (21:00)
--- NOTE | 2025-03-20 23:41 | HMCIMG ---
STUDY US-guided abdominal paracentesis HISTORY Ascites TECHNIQUE Real-time ultrasound of the abdomen was performed to localize ascites and guide paracentesis, with image documentation before and after fluid removal COMPARISON None available FINDINGS Ultrasound demonstrates free intraperitoneal fluid, most accessible in the right lower quadrant. Under ultrasound guidance, a needle and catheter were advanced into the right lower quadrant fluid collection and therapeutic paracentesis was performed. A total of approximately 4.5 liters of ascitic fluid was removed. Post-procedure images show marked reduction of the right lower quadrant ascitic collection without sonographic evidence of immediate complication in the imaged field. IMPRESSION * Technically successful ultrasound-guided right lower quadrant paracentesis with removal of approximately 4.5 liters of ascitic fluid. /[place]
--- NOTE | 2025-03-22 11:20 | EKG ---
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
== END 2025-03-20 18:06 | disposition home or self-care (01) ==
LOC: EDH 09:11 → EDHIP 12:04
PROVIDERS: ADMIT Internal Medicine Critical Care Medicine; ATTEND Internal Medicine Critical Care Medicine
DX: R18.8 Other ascites (principal); I12.0 Hypertensive chronic kidney disease with stage 5 chronic kidney disease or end stage renal disease; E11.22 Type 2 diabetes mellitus with diabetic chronic kidney disease; E78.00 Pure hypercholesterolemia, unspecified; F20.9 Schizophrenia, unspecified; F31.9 Bipolar disorder, unspecified; N18.6 End stage renal disease; G62.9 Polyneuropathy, unspecified; F41.9 Anxiety disorder, unspecified; K76.9 Liver disease, unspecified; Z79.899 Other long term (current) drug therapy; Z98.890 Other specified postprocedural states
CPT/HCPCS: 96374; 96375; 99285; 80076; 84484; 80048; 83690; 85025; 89051; 85610; 85730; 87071; 87205; 83605; 36415; 74176; 49083; 93005; 84145; G0378 ×3; J1308; J2270; J2405; P9046; C1729